=== PATIENT | female | born 1990 | race Caucasian/White ===

== ENCOUNTER 2016-10-26 00:01 | Emergency (ER) | payer MEDICAID, OTHER ==
[2016-10-26] MEDS ORDERED: CEFTRIAXONE SODIUM 250 MG VIAL ONE (00:17)
[2016-10-26] MEDS ORDERED: AZITHROMYCIN 250 MG TABLET ONE (00:18)
== END 2016-10-26 00:35 | disposition home or self-care (01) ==
LOC: ED 00:01
DX: Z20.2 Contact with and (suspected) exposure to infections with a predominantly sexual mode of transmission (principal)
CPT/HCPCS: 99282; 96372; 99283; J0696; A9270